=== PATIENT | female | born 1985 | race Caucasian/White ===

== ENCOUNTER 2018-05-02 08:33 | Outpatient (CLI) | payer OTHER ==
--- NOTE | 2018-05-02 11:07 | RAD ---
UPPER GI EXAMINATION: HISTORY: Hiatal hernia. COMPARISON: None. FINDINGS: [employer] radiograph of the abdomen is relatively normal, aside from a lumbosacral transitional vertebra. No abnormal calcifications. The patient was initially given gas-forming crystals. The patient tolerated this well. Next, the patient was given thick liquid barium. Primary and secondary peristalsis was normal. No e xtrinsic mass effect. No diverticulum. Small sliding hiatal hernia. Next, the patient was given a barium tablet. The patient tolerated this well without complication. There is no evidence of stenosis. Next, the patient was put in the BUENO position and given thin liquid barium to continuously drink. Ag ain, the primary and secondary peristalsis was normal. Very small sliding hiatal hernia. No signifi cant reflux. The gastric mucosa is normal. Normal proximal small bowel rotation. IMPRESSION: 1. Very small sliding hiatal hernia without significant reflux. 2. 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 3. Normal primary and secondary peristalsis. No evidence for dysphagia. POS: [facility]
== END 2018-05-02 08:34 | disposition home or self-care (01) ==
LOC: RAD 08:33
PROVIDERS: ATTEND Specialist
DX: K44.9 Diaphragmatic hernia without obstruction or gangrene (principal); M16.12 Unilateral primary osteoarthritis, left hip
CPT/HCPCS: 74247

== ENCOUNTER 2020-03-05 10:06 | Outpatient (CLI) | payer OTHER ==
[2020-03-06 12:21] LABS: SARS-CoV-2 MS2 Positive; SARS-CoV-2 N Gene Negative; SARS-CoV-2 S Gene Negative; SARS-CoV-2 by NAA Not Detected (NotDetected); SARS-CoV-2 orf1ab Negative
== END 2020-03-05 10:07 | disposition home or self-care (01) ==
LOC: LABSCS 10:06
PROVIDERS: ATTEND Obstetrics & Gynecology
DX: Z20.828 Contact with and (suspected) exposure to other viral communicable diseases (principal)
CPT/HCPCS: 87635; U0003